=== PATIENT | female | born 1945 | race Caucasian/White ===

== ENCOUNTER 2019-05-22 12:35 | Emergency (ER) | payer MEDICAID, MEDICARE ==
[~2019-05-22] VITALS: Ht 165.1 cm; Wt 75.9 kg
[~2019-05-22 12:35] MED LIST: LOSA25TA25 PO; METO25TA35 PO
[2019-05-22 12:37] VITALS: BP 147/88
[2019-05-22] MEDS ORDERED: XARELTO (12:49)
[2019-05-22] MEDS ORDERED: ATENOLOL (12:49)
[2019-05-22] MEDS ORDERED: [UNRECOGNIZED DRUG - OTHER] (12:49)
--- NOTE | 2019-05-22 12:51 | NUR ---
LUNCH RN: PT TO ED FOR POSSIBLE FOREIGN BODY IN LEFT EYE AFTER WALKING IN [place] ON FRIDAY. PT STATES SHE WAS WASHING FACE IN THE SHOWER ON FRIDAY AND FELT SHARP PAIN SINCE. EYE APPEARS RED. EDMD TO BS FOR ASSESSMENT. AWAITING ORDERS.
[2019-05-22] MEDS ORDERED: FLUORESCEIN/BENOXINATE 5 ML DROPS OP STA (12:53)
--- NOTE | 2019-05-22 13:00 | NUR ---
Dr. Reed to bs for assessment. Fluoro provided to
--- NOTE | 2019-05-22 13:10 | NUR ---
Patient/Caregiver given discharge instructions and they have confirmed that they understand the instructions. Patient ambulatory with steady gait.
== END 2019-05-22 13:13 | disposition home or self-care (01) ==
LOC: ED 13:11
DX: H11.32 Conjunctival hemorrhage, left eye (principal)
CPT/HCPCS: 99283